=== PATIENT | male | born 1965 | race Caucasian/White ===

== ENCOUNTER 2017-12-02 01:54 | Emergency (ER) | payer OTHER ==
[~2017-12-02] VITALS: Ht 175.3 cm; Wt 83.1 kg
[2017-12-02 01:56] VITALS: BP 139/88; TEMP 97.8
[2017-12-02] MEDS ORDERED: DULERA1 ARO IH (02:01)
[2017-12-02] MEDS ORDERED: REMERON 15M15 MG/TA1 PO (02:01)
[2017-12-02] MEDS ORDERED: MEDROL 4MG DOSPA4 MG PO (03:39)
[2017-12-02 03:52] VITALS: PULSE 70
== END 2017-12-02 04:03 | disposition home or self-care (01) ==
LOC: COL.ER 01:54
DX: J45.901 Unspecified asthma with (acute) exacerbation (principal)
CPT/HCPCS: J7512